=== PATIENT | female | born 1965 | race Caucasian/White ===

== ENCOUNTER 2018-01-02 16:43 | Observation (INO) ==
[2018-01-02] MEDS ORDERED: Gadolinium Contrast Agent (WT Based) IV PRN (18:02)
[2018-01-02] MEDS ORDERED: 0.9 % Sodium Chloride 1,000 ML IVC ONE (18:08)
[2018-01-02] MEDS ORDERED: Metoclopramide 10 MG/2 ML VIAL IVP STA (18:08)
--- NOTE | 2018-01-02 18:18 | Emergency Department Note ---
Disposition Clinical Impression: Acute ischemic stroke Disposition: Admitted As Inpatient Condition: Fair Forms: ED Satisfaction Letter Time of Disposition: 20:50 General Adult HPI - General Chief complaint: ED Neuro Symptoms/Deficit Stated complaint: left sided facial tingling Time Seen by Provider: 01/02/18 17:50 - History of Present Illness Pain Scale: 0 - Related Data Previous Rx's Medication Instructions Recorded Naproxen [Naprosyn] 500 mg PO BID PRN #20 tablet 04/25/17 Allergies Allergy/AdvReac Type Severity Reaction Status Date / Time Penicillins Allergy Unknown Rash Verified 04/24/17 21:35 Past Medical History - Past Medical History Medical history: Reports: arthritis - Social History Smoking Status: Never smoker Alcohol use: Reports: none Drug use: Reports: none Course Vital Signs Temperature 98.2 F 01/02/18 17:02 Pulse Rate 94 01/02/18 17:02 Respiratory Rate 18 01/02/18 17:02 Blood Pressure 122/69 01/02/18 17:02 O2 Sat by Pulse Oximetry 100 01/02/18 17:02 Temperature 98.2 F 01/02/18 18:05 Pulse Rate 73 01/02/18 19:51 Respiratory Rate 18 01/02/18 19:51 Blood Pressure 104/71 01/02/18 19:51 O2 Sat by Pulse Oximetry 100 01/02/18 19:51 Oxygen Delivery Oxygen Delivery Room Air Medical Decision Making - Lab Data Result diagrams: 01/02/18 18:07 01/02/18 18:07 Lab Results 01/02/18 01/02/18 Range/Units 18:07 18:07 WBC 5.7 (4.3-11.1) K/mcL RBC 4.89 (3.82-4.97) M/mcL Hgb 14.1 (11.5-15.4) g/dL Hct 42.3 (35.3-44.9) % MCV 86.5 (83.0-100.0) fL MCH 28.8 (28.0-33.3) pg MCHC 33.3 (31.6-35.5) g/dL RDW 13.2 (11.5-14.5) % Plt Count 270 (140-400) K/mcL MPV 11.2 (9.4-12.4) fL Sodium 135 L (136-145) mEq/L Potassium 4.1 (3.5-5.1) mEq/L Chloride 103 (98-107) mEq/L Carbon Dioxide 27 (23-29) mEq/L BUN 15 (6-20) mg/dL Creatinine 0.79 (0.60-1.20) mg/dL Est GFR ( Amer) > 60 (> 60) Est GFR (Non-Af Amer) > 60 (> 60) BUN/Creatinine Ratio 19 (6-26) Glucose 100 (70-105) mg/dL Calculated Osmolality 281 (280-300) Calcium 9.4 (8.6-10.3) mg/dL Attestation Statement - Attestation Attestation: I examined this patient and my medical decision-making was reviewed with the Resident Physician. I agree with the documented findings, disposition and treatment plan as described except to the extent set forth below. Patient presents to the ED with chief complaint of vision loss. Patient states today she had a change in the vision of her left eye. She states she feels like she is looking through a tunnel out of the left eye only. Was accompanied by tingling in her face. She was somewhat upset the other day that resolved spontaneously. She has appointments to get outpatient echo and carotid ultrasounds that was instructed to come to the ED when it happened again. On examination she is awake alert pleasant conversant sitting up in bed in no acute distress. Sensation intact. External ocular muscles intact. Pupils equally reactive. Visual field testing is unremarkable. Plan. MRI/MRA head neck. MR shows a small acute infarct in the corpus callosum. Patient admitted to medicine for stroke workup. Neck MRA 01/02/18 18:02 IMPRESSION: Small acute infarct in the leftward aspect of the splenium of the corpus callosum No focal significant arterial narrowing in the head No focal significant arterial narrowing in the neck D/ / Ishmael Horne / Ishmael Horne Interpreting Provider: Ishmael Horne Brain MRI 01/02/18 18:04 IMPRESSION: Small acute infarct in the leftward aspect of the splenium of the corpus callosum No focal significant arterial narrowing in the head No focal significant arterial narrowing in the neck D/ / Ishmael Horne / Ishmael Horne Interpreting Provider: Ishmael Horne Head MRA 01/02/18 18:04
[2018-01-02 18:45] LABS: Hematocrit 42.3 % (35.3-44.9); Hemoglobin 14.1 g/dL (11.5-15.4); Mean Corpuscular HGB Conc 33.3 g/dL (31.6-35.5); Mean Corpuscular Hemoglobin 28.8 pg (28.0-33.3); Mean Corpuscular Volume 86.5 fL (83.0-100.0); Mean Platelet Volume 11.2 fL (9.4-12.4); Platelet Count 270 K/mcL (140-400); Red Blood Count 4.89 M/mcL (3.82-4.97); Red Cell Distribution Width 13.2 % (11.5-14.5)
[2018-01-02 19:08] LABS: BUN/Creatinine Ratio 19 (6-26); Blood Urea Nitrogen 15 mg/dL (6-20); Calcium 9.4 mg/dL (8.6-10.3); Carbon Dioxide 27 mEq/L (23-29); Chloride 103 mEq/L (98-107); Glucose 100 mg/dL (70-105); Osmolality,Calculated 281 (280-300); Potassium 4.1 mEq/L (3.5-5.1); Sodium 135 mEq/L (136-145); eGFR For Non-African Americans > 60 (> 60)
[2018-01-02] MEDS ORDERED: Aspirin 325 MG TABLET PO ONE (20:48)
--- NOTE | 2018-01-02 20:49 | Emergency Department Note ---
Disposition Clinical Impression: Acute ischemic stroke, Stroke Disposition: Still a Patient Condition: Good Referrals: Estephania Wakefield MD [Primary Care Provider] - Forms: ED Satisfaction Letter Neuro HPI - General Chief Complaint: ED Neuro Symptoms/Deficit Stated Complaint: left sided facial tingling Time Seen by Provider: 01/02/18 17:50 Source: patient Limitations: no limitations - History of Present Illness HPI Narrative: 52 YO F presenting with left eye tunnel vision and face tingling. Symptom of left facial tingling started on fri. Today patient started having tunnel vision. This has never occurred before. Denies eye pain, floaters, vision changes similar to a "curtain falling". Denies weakness of extremities or face , difficulty balancing, tingling of extremities, decreased sensation. Patient does not have leg pain or swelling. No CP, SOB, pleuritic chest pain. Has history significant for benign liver tumor, unexplained fever for 1 year worked up at [facility], and erythema nodosum with decreased energy. These symptoms have never been explained. - Related Data Home Medications: Previous Rx's Medication Instructions Recorded Naproxen [Naprosyn] 500 mg PO BID PRN #20 tablet 04/25/17 Allergies/Adverse Reactions: Allergies Allergy/AdvReac Type Severity Reaction Status Date / Time Penicillins Allergy Unknown Rash Verified 04/24/17 21:35 All systems ED: reviewed and negative except as stated. Constitutional: Denies: fever, chills, weakness, night sweats Cardiovascular: Denies: chest pain, palpitations, dyspnea on exertion Respiratory: Denies: cough, dyspnea Gastrointestinal: Denies: abdominal pain, nausea Neurological: Denies: headache, weakness, numbness, paresthesias, confusion, abnormal gait, vertigo Past Medical History - Past Medical History Attestation: Yes The following information was validated with the patient. Source: patient Medical history: Reports: arthritis Psychiatric history: Reports: no psych history [employer] history: Reports: no [employer] history - Social History Smoking Status: Never smoker Smokeless Tobacco Status: No Alcohol use: Reports: none Drug use: Reports: none Physical Exam - General Limitations: no limitations General appearance: alert, in no apparent distress - Head Head exam: atraumatic, normocephalic - Eye Eye exam: Present: normal appearance, PERRL - Chest Chest inspection: Present: normal inspection, symmetric chest wall rise - Respiratory Respiratory exam: Present: normal lung sounds bilaterally, respiratory distress - Cardiovascular Cardiovascular exam: Present: regular rate, normal rhythm, normal heart sounds - Neurological Exam Neurological exam: Present: alert, oriented X3, CN II-XII intact - Psychiatric Psychiatric exam: Present: normal affect, normal mood Course Course Narrative: MRI of brain showed small infarct in corpus collosum. Spoke to hospitalists and patient. Patient will be admitted for stroke workup. Vital Signs Temperature 98.2 F 01/02/18 17:02 Pulse Rate 94 01/02/18 17:02 Respiratory Rate 18 01/02/18 17:02 Blood Pressure 122/69 01/02/18 17:02 O2 Sat by Pulse Oximetry 100 01/02/18 17:02 Temperature 98.2 F 01/02/18 18:05 Pulse Rate 73 01/02/18 19:51 Respiratory Rate 18 01/02/18 19:51 Blood Pressure 104/71 01/02/18 19:51 O2 Sat by Pulse Oximetry 100 01/02/18 19:51 Oxygen Delivery Oxygen Delivery Room Air Neuro Symptoms/Deficit - Lab Data Result diagrams: 01/02/18 18:07 01/02/18 18:07 Lab Results 01/02/18 01/02/18 Range/Units 18:07 18:07 WBC 5.7 (4.3-11.1) K/mcL RBC 4.89 (3.82-4.97) M/mcL Hgb 14.1 (11.5-15.4) g/dL Hct 42.3 (35.3-44.9) % MCV 86.5 (83.0-100.0) fL MCH 28.8 (28.0-33.3) pg MCHC 33.3 (31.6-35.5) g/dL RDW 13.2 (11.5-14.5) % Plt Count 270 (140-400) K/mcL MPV 11.2 (9.4-12.4) fL Sodium 135 L (136-145) mEq/L Potassium 4.1 (3.5-5.1) mEq/L Chloride 103 (98-107) mEq/L Carbon Dioxide 27 (23-29) mEq/L BUN 15 (6-20) mg/dL Creatinine 0.79 (0.60-1.20) mg/dL Est GFR ( Amer) > 60 (> 60) Est GFR (Non-Af Amer) > 60 (> 60) BUN/Creatinine Ratio 19 (6-26) Glucose 100 (70-105) mg/dL Calculated Osmolality 281 (280-300) Calcium 9.4 (8.6-10.3) mg/dL NIH Stroke Scale - Level of Consciousness LOC: Alert - LOC Questions LOC Questions: Answers both correctly - LOC Commands LOC Commands: Performs both correctly - Best Gaze Best Gaze: Normal - Visual Visual: Partial hemianopia - Facial Palsy Facial Palsy: Normal - Motor Arms Motor Arm-Left: No drift for 10 seconds Motor Arm-Right: No drift for 10 seconds - Motor Legs Motor Leg-Left: No drift for 5 seconds Motor Leg-Right: No drift for 5 seconds - Limb Ataxia Limb Ataxia: Normal, No Ataxia - Sensory Sensory: Normal - Best Language Best Language: No aphasia - Dysarthria Dysarthria: Normal - Extinction and Inattention Extinction and Inattention: Normal - NIHSS Total Score NIHSS Total Score: 1
[2018-01-02] MEDS ORDERED: Ringers Solution, Lactated 1,000 ML IVC SCH (21:45)
--- NOTE | 2018-01-02 23:13 | Internal Med History&Physical ---
Date of Encounter: 01/02/18 Time of Encounter: 21:00 Internal Medicine - H&P: HPI Chief complaint: Tunnel vision Admitted From: Home Plans for Post Hospital Care: Home History of present illness: Ms. Arriola is a 52 year old female who reports a history of a liver mass that required left hepatectomy reported nonmalignant however the etiology remains unclear, strong family history of CVA who presents with a complaint of left facial tingling that started on Friday and was self-limited and resolved and again earlier today recurred without accompanying speech slurring however was not associated with tunnel vision in her left eye. She had no headaches or loss of consciousness at the time. She was brought to the ER by her and comprehensive workup was done which included a brain MRI and showed a small acute infarct in the leftward aspect of the splenium of the corpus callosum. On my assessment she reports feeling well and has no complaints at this time. She denies headache, dizziness, chest pain, dyspnea, confusional state or ongoing facial paresthesias. She says her left eye vision is still somewhat blurry. She denies being on any prescribed medications at this time but confirms she takes OTC "Profema" for menopausal symptoms. Past Med Surg Social Fam HX - Past Medical History Medical history: arthritis Additional medical history: tumor on liver Psychiatric history: no psych history - Past Surgical History Additional surgical history: D&C. Tubal ligation. partial hepatectomy - Social History Smoking Status: Never smoker Smokeless Tobacco Status: No Alcohol use: none Drug use: none Internal Medicine - H&P: Meds Aspirin [Adult Aspirin] 81 mg PO DAILY 01/02/18 [History] Calcium Crb,Cit/D3/Min34/Ekaterina [Citracal + Bone Density Tablet] 1 each PO DAILY 01/02/18 [History] Cyanocobalamin (Vitamin B-12) [Vitamin B12] 1,000 mcg PO DAILY 01/02/18 [History ] DiphenhydraMINE [Benadryl] 50 mg PO HS 01/02/18 [History] Ibuprofen [Advil] 400 mg PO Q12H 01/02/18 [History] Loratadine [Claritin] 10 mg PO DAILY 01/02/18 [History] Magnesium Oxide [Magnesium] 400 mg PO DAILY 01/02/18 [History] Multivitamin [One Daily Essential] 1 each PO DAILY 01/02/18 [History] Potassium 99 mg PO DAILY 01/02/18 [History] Profema 1 tab PO DAILY 01/02/18 [History] Pseudoephedrine HCl [Sudafed] 30 mg PO DAILY 01/02/18 [History] 3 Allergy/AdvReac Type Severity Reaction Status Date / Time Penicillins Allergy Unknown Rash Verified 01/02/18 21:32 All Systems PM: A 10-system review of systems was performed and is negative for pertinent findings except as documented above in the HPI. - Constitutional Vitals: Temp Pulse Resp BP Pulse Ox 98.2 F 73 18 112/77 100 01/02/18 18:05 01/02/18 21:00 01/02/18 21:00 01/02/18 21:00 01/02/18 21:00 Exam: Vitals: Reviewed General: Well-developed, pleasant and in no acute distress Skin: Warm and supple. HEENT: Moist mucous membranes. No conjunctivae pallor. EOMI. PERRLA. Neck: No lymphadenopathy. No JVD. No carotid bruits. No palpable thyroid. Chest: Normal thoracic expansion. Normal breath sounds. Clear to auscultation. Heart: Normal S1 & S2; rhythmic. No rubs or murmurs. Abdomen: Non-distended, soft and non-tender to palpation. No peritoneal reaction. Liver is normal in size. Spleen is not palpable. Extremities: No clubbing, cyanosis or edema. No calf tenderness. Normal distal pulses. Neurological: Awake, alert and oriented to person, place and time. No focal deficits. Psych: Affect appropriate. Internal Med - H&P Results - Labs CBC & Chem 7: 01/02/18 18:07 01/02/18 18:07 Labs: Short CBC 01/02/18 Range/Units 18:07 WBC 5.7 (4.3-11.1) K/mcL Hgb 14.1 (11.5-15.4) g/dL Hct 42.3 (35.3-44.9) % Plt Count 270 (140-400) K/mcL [facility] 01/02/18 18:07 Sodium 135 L Potassium 4.1 Chloride 103 Carbon Dioxide 27 BUN 15 Creatinine 0.79 Glucose 100 Calcium 9.4 - Impressions ITS Impressions Neck MRA 01/02/18 18:02 IMPRESSION: Small acute infarct in the leftward aspect of the splenium of the corpus callosum No focal significant arterial narrowing in the head No focal significant arterial narrowing in the neck D/ / Ishmael Horne / Ishmael Horne Interpreting Provider: Ishmael Horne Brain MRI 01/02/18 18:04 IMPRESSION: Small acute infarct in the leftward aspect of the splenium of the corpus callosum No focal significant arterial narrowing in the head No focal significant arterial narrowing in the neck D/ / Ishmael Horne / Ishmael Horne Interpreting Provider: Ishmael Horne Head MRA 01/02/18 18:04 IMPRESSION: Small acute infarct in the leftward aspect of the splenium of the corpus callosum No focal significant arterial narrowing in the head No focal significant arterial narrowing in the neck D/ / Ishmael Honre / Ishmael Horne Interpreting Provider: Ishmael Horne - Assessment and plan (1) Acute ischemic stroke Current Visit: Yes Status: Acute Assessment and plan: Interesting location for a stroke. No known risk factors present as she denies peripheral vascular disease, diabetes, hypertension, smoking, illicit drug use. Could some of the components in her OTC medication mineral complex be a contributing factor? Unclear. Will send a comprehensive work up to ensure there is no hypercoagulable component. Loading dose ASA + high intensity statin to be given. The patient already takes ASA 81mg daily at home. Will check carotid duplex and EKG. Keep on telemetry. Neurology consultation. (2) Liver mass, left lobe Current Visit: Yes Status: Acute Assessment and plan: s/p resection. Etiology unclear. Follows at outside hospital. (3) DVT prophylaxis Current Visit: Yes Status: Acute Assessment and plan: SubQ heparin ordered. - Time Spent With Patient Total time spent is greater than 50% in coordination of care (as documented) at patient's floor/unit and/or counseling patient: Greater than 35 minutes - Stroke Is the patient on any antithrombotics?: No Are there any contradictions to antithrombotics?: No
[2018-01-03] MEDS: *HR* Heparin 5,000 UNIT/ML VIAL SQ SCH ×4 (01:33→21:41)
[2018-01-03 05:10] LABS: Basophils # 0.1 K/mcL (0.0-0.2); Basophils % 1.2 %; Eosinophils # 0.2 K/mcL (0.0-0.6); Lymphocytes # 1.9 K/mcL (0.6-4.6); Lymphocytes % 45.7 %; Mean Corpuscular HGB Conc 33.7 g/dL (31.6-35.5); Mean Corpuscular Hemoglobin 28.4 pg (28.0-33.3); Mean Corpuscular Volume 84.3 fL (83.0-100.0); Monocytes # 0.3 K/mcL (0.0-1.3); Monocytes % 7.7 %; Neutrophils # 1.7 K/mcL (1.6-8.9); Platelet Count 232 K/mcL (140-400); Red Blood Count 4.15 M/mcL (3.82-4.97); Red Cell Distribution Width 13.2 % (11.5-14.5); Segmented Neutrophils % 40.4 %
[2018-01-03 05:22] LABS: Hemoglobin 11.8 g/dL (11.5-15.4)
[2018-01-03 05:24] LABS: Prothrombin Time 11.1 Seconds (9.4-12.1)
[2018-01-03 05:26] LABS: Activated Partial Thrombo Time 31.5 Seconds (26.0-36.0)
[2018-01-03 05:31] LABS: BUN/Creatinine Ratio 19 (6-26); Blood Urea Nitrogen 11 mg/dL (6-20); Calcium 8.6 mg/dL (8.6-10.3); Carbon Dioxide 24 mEq/L (23-29); Chloride 106 mEq/L (98-107); Chol/HDL Ratio 2.4 (0-4.9); Cholesterol 182 mg/dL (< 200); Glucose 86 mg/dL (70-105); HDL Cholesterol 75 mg/dL (40-59); LDL Cholesterol,Calculated 97 mg/dL (0-99); Osmolality,Calculated 279 (280-300); Potassium 3.7 mEq/L (3.5-5.1); Sodium 135 mEq/L (136-145); Triglycerides 51 mg/dL (< 150); eGFR For Non-African Americans > 60 (> 60)
[2018-01-03 05:43] LABS: Thyroid Stimulating Hormone 4.943 mcIU/mL (0.340-5.600)
[2018-01-03 07:00] LABS: Estimated Average Glucose 105 mg/dl; Hemoglobin A1C 5.3 %
[2018-01-03] MEDS: Cyanocobalamin (B-12) 1,000 MCG TABLET PO SCH (08:11)
[2018-01-03] MEDS: Magnesium Oxide 400 MG TABLET PO SCH (08:11)
[2018-01-03] MEDS: Multivit/Ca/Min/Fe/FA 1 TAB TABLET PO SCH (08:11)
[2018-01-03] MEDS ORDERED: Aspirin 81 MG TAB.CHEW PO SCH (09:00)
[2018-01-03] MEDS ORDERED: Aspirin Enteric Coated 81 MG Tablet PO SCH (09:00)
--- NOTE | 2018-01-03 10:55 | Internal Med Progress Note ---
Hospitalist Progress Note - Encounter Date of Encounter: 01/03/18 Time of Encounter: 10:52 - Subjective Interval History: Ms. Arriola is a 52-year-old female with a past medical history of a liver mass that required left hepatectomy and fm of CVA who presented with left facial tingling, slurred speech who was found to have an acute ischemic stroke. Today patient is feeling *. - Exam Vitals: Temp Pulse Resp BP Pulse Ox 98.3 F 65 20 110/69 98 01/03/18 07:27 01/03/18 08:05 01/03/18 08:05 01/03/18 08:05 01/03/18 08:22 - Assessment and Plan (1) Acute ischemic stroke Current Visit: Yes Status: Acute Assessment and Plan: slurred speech and facial tingling. Brain MRI shows Small acute infarct in the leftward aspect of the splenium of the corpus callosum. Loading dose ASA + high intensity statin given. Head and neck MRI showed No focal significant arterial narrowing in the head or neck. Work-up pending for hypercoagulablity. Patient already taking ASA at home. Labs: Lipid panel: LDL = 97, HDL 75, total 182, TSH wnl Plan: - continue home ASA - continue Atorvastatin 20mg daily - carotid duplex - continue tele - echo pending - neurology consulted - pending labs: factor V, lupus anticoagulant panel, Vit B12, treponema pallidum ab, homocysteine - dispo: pending neurology recommendations (2) Liver mass, left lobe Current Visit: Yes Status: Acute - Time Spent with Patient Total time spent is greater than 50% in coordination of care (as documented) at patient's floor/unit and/or counseling patient: Internal Medicine: Result - Labs CBC & Chem 7: 01/03/18 04:52 01/03/18 04:52 Labs: Short CBC 01/03/18 Range/Units 04:52 WBC 4.2 L (4.3-11.1) K/mcL Hgb 11.8 D (11.5-15.4) g/dL Hct 35.0 L (35.3-44.9) % Plt Count 232 (140-400) K/mcL Neutrophils # 1.7 (1.6-8.9) K/mcL BMP 01/03/18 04:52 Sodium 135 L Potassium 3.7 Chloride 106 Carbon Dioxide 24 BUN 11 Creatinine 0.59 L Glucose 86 Calcium 8.6 - ABG Interpretation ABG results: PT/INR, D-dimer PT 11.1 Seconds (9.4-12.1) 01/03/18 04:52 Consult Discharge Plan - Plan Referrals: Estephania Wakefeild MD [Primary Care Provider] -
--- NOTE | 2018-01-03 13:30 | Neurology - Consult Note ---
Date of Encounter: 01/03/18 Time of Encounter: 13:26 Assessment and Plan (1) Abnormal finding on MRI of brain Current Visit: Yes Status: Acute At this juncture, I am not certain that the findings of the MRI scan of the brain has any bearing on the symptoms that ultimately led to her admission. The abnormality is identified in the splenium of the left side of the corpus callosum. Her symptoms of left facial paresthesias and visual abnormalities in the left eye would not localize to this lesion. I am also not completely certain that this abnormality is indeed an acute infarct. As mentioned in the body of the history of present illness of my report, there is no equivalent lesion on the ADC map to match with the abnormality on diffusion imaging and on the FLAIR imaging. There is no edema or mass effect identified around the lesion. Unfortunately the MRI scan of the brain was not done with contrast. However the MRA scans of the brain and of the neck were both normal. At this juncture I feel it is best to simply treat this abnormality as an acute infarct. I would recommend discontinuing the aspirin and switching her to Plavix in the meantime. I would also like to follow up with her my office in another month or so. At that time I would like to repeat an MRI scan of the brain with and without contrast as well as with diffusion images. If the lesion has resolved, then I would be convinced that it actually was not acute infarct. We can also help determine with contrast whether or not there are other entities to consider. I believe it is okay to discharge her home at your discretion as long as she agrees for follow-up as an outpatient for further characterization of this abnormality. Also it would be helpful to be able to compare the results of the brain MRI completed at the [facility] in July to the current study. History of Present Illness HPI: The chart was reviewed, the patient was seen and examined. Ms. Arriola is a 52 year old female who is seen for neurologic consultation at the request of the hospitalist due to left facial paresthesias and an abnormal MRI scan of the brain. Patient reports experiencing intermittent paresthesias of the left cheek region which began 4 days ago. Symptoms have waxed and waned over that time and then earlier on the day of admission which was yesterday she began to experience what seems to be tunnel vision involving the left eye. She states that this is still present. She denies any paresthesias of the left arm or left leg. She does not denies any difficulty with the speech or language comprehension. MRI scan of the brain without contrast was completed and revealed a small lesion in the splenium of the left side of the corpus callosum. This was called an acute infarct. However ADC map does not reveal a corresponding abnormality in the same region of the splenium of the corpus callosum where this abnormality is identified on diffusion imaging. However this abnormality is indeed present on the FLAIR images as well. There is no edema or mass effect associated with it. However the location of this lesion does not correlate with any of her symptoms. She has a lengthy past medical history. Apparently she was diagnosed with some type of hepatic tumor. The exact etiology or cell type of the tumor I am told was unknown but ultimately was benign. She apparently had an MRI scan of the brain completed at the [facility] in July of this year. I did not have the results of the study however she was not told of any abnormalities present. Past Med Surg Social Fam HX - Past Medical History Medical history: arthritis Additional medical history: tumor on liver with approx 30% liver removed @ [facility] july 2017 Psychiatric history: no psych history - Past Surgical History Surgical History: cholecystectomy, other Additional surgical history: D&C. Tubal ligation. partial hepatectomy - Social History Smoking Status: Never smoker Smokeless Tobacco Status: No Alcohol use: none Drug use: none - Family History Father Adopted: No Family Member Ethnicity: Non- Living Status: Age at : 80 Cause of : CVA Hx Family Endocrine Disorder: Yes (Diabetes) Hx Family Neurologic Disorders: Yes (TIA's, massive CVA) Hx Family Psychosocial Disorders: Yes Medications and Allergies Aspirin [Adult Aspirin] 81 mg PO DAILY 01/02/18 [History] Calcium Crb,Cit/D3/Min34/Ekaterina [Citracal + Bone Density Tablet] 1 each PO DAILY 01/02/18 [History] Cyanocobalamin (Vitamin B-12) [Vitamin B12] 1,000 mcg PO DAILY 01/02/18 [History ] DiphenhydraMINE [Benadryl] 50 mg PO HS 01/02/18 [History] Ibuprofen [Advil] 400 mg PO Q12H 01/02/18 [History] Loratadine [Claritin] 10 mg PO DAILY 01/02/18 [History] Magnesium Oxide [Magnesium] 400 mg PO DAILY 01/02/18 [History] Multivitamin [One Daily Essential] 1 each PO DAILY 01/02/18 [History] Potassium 99 mg PO DAILY 01/02/18 [History] Profema 1 tab PO DAILY 01/02/18 [History] Pseudoephedrine HCl [Sudafed] 30 mg PO DAILY 01/02/18 [History] 3 Allergy/AdvReac Type Severity Reaction Status Date / Time Penicillins Allergy Unknown Rash Verified 01/02/18 21:32 All Systems: The remainder of the systems were reviewed and are negative Review of Systems: The balance of the systems review is negative. Physical Examination - Vital Signs Vital Signs: Initial Vital Signs Temp Pulse Resp BP Pulse Ox 98.2 F 94 18 122/69 100 01/02/18 17:02 01/02/18 17:02 01/02/18 17:02 01/02/18 17:02 01/02/18 17:02 - Neurologic Detailed motor examination: full strength in all major muscle groups Motor examination - right side: 5/5: deltoids, biceps, triceps, wrist flexion, wrist extension, truck loader, hip flexors, tibialis Anterior, quadriceps, toe extension (EHL), plantarflexion Motor examination - left side: 5/5: deltoids, biceps, triceps, wrist flexion, wrist extension, hip flexors, truck loader, quadriceps, tibialis Anterior, toe extension (EHL), plantarflexion Reflex and gait examination: other (Deep tendon reflexes are 2+/4 of the upper and lower extremities throughout. However there is no clonus, no Babinski identified.) Mental Status Examination: awake, alert, oriented to person, oriented to place, oriented to time, follows commands appropriately, answers questions appropriately, no agnosia, no aphasia, no aproxia Cranial nerve examination: PERRL, EOMI, visual ricardo intact, corneal reflexes brisk symmetrically, sensory to face intact, mastication intact, no facial asymmetry is present, no dysarthria, hearing is intact symmetrically, soft palate elevates bilaterally upon phonation, gag reflex intact, flexes SCM and trapezius muscles symmetrically with full power, tongue protrudes midline, no atrophy or facial fasiculations present Cerebellar examination: no dysmetria, performs finger to nose and heel to valentine symmetrically without ataxia, no gait ataxia, no truncal ataxia, no difficulty with rapid alternating movements Results - Laboratory Findings CBC and BMP: 01/03/18 04:52 01/03/18 04:52 Abnormal lab findings: Abnormal lab results WBC 4.2 K/mcL (4.3-11.1) L 01/03/18 04:52 Hct 35.0 % (35.3-44.9) L 01/03/18 04:52 Sodium 135 mEq/L (136-145) L 01/03/18 04:52 Creatinine 0.59 mg/dL (0.60-1.20) L 01/03/18 04:52 Calculated Osmolality 279 (280-300) L 01/03/18 04:52 HDL Cholesterol 75 mg/dL (40-59) H 01/03/18 04:52 Consult Discharge Plan - Plan Referrals: Estephania Wakefield MD [Primary Care Provider] -
--- NOTE | 2018-01-03 14:30 | Discharge Summary ---
<Ly Wong - Last Filed: 01/03/18 18:03> - NOTES TO OUTPATIENT PROVIDER Notes to Outpatient Provider: Will need f/u with Neurology in 4 weeks. MRI head /brain with and without contrast in about 4 weeks prior to neurology appointment. Orders not resulted at time of discharge: Pending orders 01/03/18 04:52 MMA (VIT B12 STATUS) Routine Date of Encounter: 01/03/18 Time of Encounter: 11:30 - Discharge Diagnosis (1) Acute ischemic stroke Priority: Primary Status: Acute (2) Liver mass, left lobe Priority: Secondary Status: Acute Hospital course: H&P HPI: Ms. Arriola is a 52 year old female who reports a history of a liver mass that required left hepatectomy reported nonmalignant however the etiology remains unclear, strong family history of CVA who presents with a complaint of left facial tingling that started on Friday and was self-limited and resolved and again earlier today recurred without accompanying speech slurring however was not associated with tunnel vision in her left eye. She had no headaches or loss of consciousness at the time. She was brought to the ER by her and comprehensive workup was done which included a brain MRI without contrast and showed a small acute infarct in the leftward aspect of the splenium of the corpus callosum. HOSPITAL COURSE: Patient was admitted to the floor for observation for ischemic stroke. She was given loading dose ASA and started on Atorvastatin 20mg daily. Head and neck MRA were both normal. ECHO was completed which showed LVEF 65% normal wall segment motion. Patient's facial tingling resolved about 11 hrs after starting but she continued to have tunnel vision in her left eye. Neurology was consulted and recommended switching from ASA to Plavix as patient had already been on ASA daily and recommended repeat MRI with and without contrast with diffusion imaging in 1 month with a f/u appointment with Neurology at that time. Patient's vitals remained stable throughout the hospital course with no new symptoms. She was discharged home with Plavix and Atorvastatin and instructed to stop taking the ASA. She was instructed to f/u with her PCP in 2-5 days and f/u with Neurology in 4 weeks. She will need an MRI head/brain with and without contrast in about 4 weeks prior to neurology appointment. Discharge discussed with: patient - Time Spent with Patient Total time spent providing and/or coordinating discharge services: - Discharge Medications Prescriptions: Atorvastatin [Lipitor] 20 mg PO HS #30 tablet Clopidogrel [Plavix] 75 mg PO DAILY #30 tablet Home Medications: Calcium Crb,Cit/D3/Min34/Ekaterina [Citracal + Bone Density Tablet] 1 each PO DAILY 01/02/18 [History] Cyanocobalamin (Vitamin B-12) [Vitamin B12] 1,000 mcg PO DAILY 01/02/18 [History ] DiphenhydraMINE [Benadryl] 50 mg PO HS 01/02/18 [History] Ibuprofen [Advil] 400 mg PO Q12H 01/02/18 [History] Loratadine [Claritin] 10 mg PO DAILY 01/02/18 [History] Magnesium Oxide [Magnesium] 400 mg PO DAILY 01/02/18 [History] Multivitamin [One Daily Essential] 1 each PO DAILY 01/02/18 [History] Potassium 99 mg PO DAILY 01/02/18 [History] Profema 1 tab PO DAILY 01/02/18 [History] Pseudoephedrine HCl [Sudafed] 30 mg PO DAILY 01/02/18 [History] Atorvastatin [Lipitor] 20 mg PO HS #30 tablet 01/03/18 [Rx] Clopidogrel [Plavix] 75 mg PO DAILY #30 tablet 01/03/18 [Rx] Allergies/Adverse Reactions: 3 Allergy/AdvReac Type Severity Reaction Status Date / Time Penicillins Allergy Unknown Rash Verified 01/02/18 21:32 Date of admission: 01/03/18 00:11 Primary care physician: Estephania Wakefield Discharging clinician: Ronnie Martinez Anticipated date of discharge: 01/03/18 - Constitutional Vitals: Temp Pulse Resp BP Pulse Ox 98.2 F 63 16 104/66 100 01/03/18 11:30 01/03/18 11:30 01/03/18 11:30 01/03/18 11:30 01/03/18 11:30 Exam: Constitutional: Alert, in no acute distress, well nourished, well developed. HEENT: EOMI, peripheral vision field testing normal, PERRL, Normocephalic, atraumatic, normal contour and symmetric, no masses, lesions or scars Heart: Normal, regular rate and rhythm, no murmurs Lungs: Clear to auscultation, no wheezes, rales, or rhonchi Abdomen: Soft, nondistended, nontender, and no masses palpable, bowel sounds present and normal, no guarding or rigidity. Extremities: No clubbing, cyanosis, or edema, radial pulse +2/4, capillary refill <2sec. Skin: Skin warm and dry, no lesions, no rashes, no jaundice Neurologic: no facial asymmetry, Cranial nerves II through XII intact, Romberg sign negative, Achilles reflexes +2/4, no focal deficits, strength within normal limits in all extremities, Psych: Cooperative with exam, good eye contact, cognitive function intact, judgment good insight good, speech clear, thought process logical, and goal directed - Patient Status Disposition: Home, Self-Care Condition: Good Overall status at discharge: patient is progressing back to baseline - Discharge Instructions Instructions: Atorvastatin (By mouth), Clopidogrel (By mouth), Heart Healthy Diet (DC), Cholesterol and Your Health (GEN), Ischemic Stroke (DC), Ischemic Stroke (GEN), Hemorrhagic Stroke (DC), Hemorrhagic Stroke (GEN), Right Hemispheric Stroke (DC), Right Hemispheric Stroke (GEN), Left Hemispheric Stroke (DC), Left Hemispheric Stroke (GEN), Self Care Measures After a Stroke ( DC), Self Care Measures After a Stroke (GEN), Dizziness (GEN), Right Hemispheric Stroke, Planning Manager (GEN), Hemorrhagic Stroke, Planning Manager ( GEN), Dizziness, Planning Manager (GEN), Ischemic Stroke, Planning Manager (GEN), Left Hemispheric Stroke, Planning Manager (GEN) Follow Up With: Ophthalmology [Provider Group] Estephania Wakefield MD [Primary Care Provider] - Joshua Niño DO [Partnered Physician] - Additional Instructions: Please stop taking Aspirin and begin taking Plavix. Prescriptions sent to pharmacy for Plavix and Atorvstatin. Please follow-up with your primary car physician in 2-5 days. Please follow-up with Neurology in 4 weeks and obtain repeat MRI before appointment. - Diet and Activity Activity: increase activity as tolerated Diet: regular diet - Stroke Is the patient on any antithrombotics?: No Are there any contradictions to antithrombotics?: No Contraindication Not Initiating IV-Tpa: Not Indicated - Symptoms Rapidly Improving Onset of Symptoms Date: 01/02/18 Onset of Symptoms Time: 12:00 Symptom Onset Unknown: No Has Patient Been Evaluated by Rehab for Stroke: No Contraindication Rehab Services Not Assessed: Returned to Prior Level of Function <Ronnie Martinez - Last Filed: 01/04/18 13:49> Orders not resulted at time of discharge: Pending orders 01/03/18 04:52 MMA (VIT B12 STATUS) Routine Date of Encounter: 01/04/18 - Discharge Diagnosis (1) Acute ischemic stroke Status: Acute (2) Liver mass, left lobe Status: Acute (3) Changes in vision Status: Acute Hospital course: Ms. Arriola is a 52 year old female - Time Spent with Patient Total time spent providing and/or coordinating discharge services: Date of admission: 01/03/18 00:11 Primary care physician: Estephania Wakefield - Constitutional Vitals: Temp Pulse Resp BP Pulse Ox 97.9 F 85 14 112/78 99 01/04/18 11:16 01/04/18 11:16 01/04/18 11:16 01/04/18 11:16 01/04/18 11:16 - Attending Attestation I examined this patient and my medical decision-making was reviewed with the Resident Physician. I agree with the documented findings, disposition and treatment plan as described except to the extent set forth below.
[2018-01-04] MEDS: *HR* Heparin 5,000 UNIT/ML VIAL SQ SCH (06:08)
[2018-01-04] MEDS: Magnesium Oxide 400 MG TABLET PO SCH (10:26)
[2018-01-04] MEDS: Cyanocobalamin (B-12) 1,000 MCG TABLET PO SCH (10:26)
[2018-01-04] MEDS: Multivit/Ca/Min/Fe/FA 1 TAB TABLET PO SCH (10:26)
--- NOTE | 2018-01-04 10:56 | Internal Med Progress Note ---
<Ly Wong - Last Filed: 01/04/18 10:52> Hospitalist Progress Note - Encounter Date of Encounter: 01/04/18 Time of Encounter: 11:00 - Subjective Interval History: Today patient states that she is doing well and has no numbness of her face. She says the peripheral vision of her left eye is still fussy. - Exam Vitals: Temp Pulse Resp BP Pulse Ox 98.3 F 80 16 108/65 98 01/04/18 07:04 01/04/18 07:04 01/04/18 07:04 01/04/18 07:04 01/04/18 07:04 Exam: Constitutional: Alert, in no acute distress Head: Normocephalic, atraumatic Heart: Normal, regular rate and rhythm, no murmurs Lungs: Clear to auscultation, no wheezes, rales, or rhonchi Abdomen: Soft, nondistended, nontender, bowel sounds present and normal, no guarding or rigidity. Extremities: No edema, No clubbing, radial pulse +2/4, capillary refill <2sec. Skin: Skin warm and dry, no lesions, no rashes, no jaundice Neurologic: Cranial nerves II through XII grossly intact, strength 5/5 in all extremities Psych: Cooperative with exam, good eye contact, cognitive function intact, speech clear, thought process logical, and goal directed - Assessment and Plan (1) Acute ischemic stroke Status: Acute Assessment and Plan: CT scan showed Small acute infarct in the leftward aspect of the splenium of the corpus callosum. MRA of neck and head wnl. Patients numbness and tingling resolved but visual changes still present. Hypercoagulability work up pending, will need results reported to PCP. Echo results normal. plan: discharge today on Atorvastatin and Plavix, f/u appt with Dr. Niño in 4- 6 weeks after MRI brain with and without contrast. Recommend f/u with ophthalmology for visual changes. (2) Liver mass, left lobe Status: Acute Assessment and Plan: s/p resection. Etiology unclear. Follows at outside hospital. (3) Changes in vision Status: Acute Assessment and Plan: Tunnel vision but peripheral visual ricardo still intact. Instructed patient to f /u with ophthalmology outpatient. DVT Prophylaxis: Heparin SQ - Time Spent with Patient Total time spent is greater than 50% in coordination of care (as documented) at patient's floor/unit and/or counseling patient: Plan of Care Discussed with: patient Internal Medicine: Result - Labs CBC & Chem 7: 01/03/18 04:52 01/03/18 04:52 - ABG Interpretation ABG results: PT/INR, D-dimer PT 11.1 Seconds (9.4-12.1) 01/03/18 04:52 - Stroke Is the patient on any antithrombotics?: No Are there any contradictions to antithrombotics?: No Contraindication Not Initiating IV-Tpa: Not Indicated - Symptoms Rapidly Improving Contraindication Rehab Services Not Assessed: Returned to Prior Level of Function Consult Discharge Plan - Plan Instructions: Atorvastatin (By mouth), Clopidogrel (By mouth), Heart Healthy Diet (DC), Cholesterol and Your Health (GEN), Ischemic Stroke (DC), Ischemic Stroke (GEN), Hemorrhagic Stroke (DC), Hemorrhagic Stroke (GEN), Right Hemispheric Stroke (DC), Right Hemispheric Stroke (GEN), Left Hemispheric Stroke (DC), Left Hemispheric Stroke (GEN), Self Care Measures After a Stroke ( DC), Self Care Measures After a Stroke (GEN), Dizziness (GEN), Right Hemispheric Stroke, Engineer Systems (GEN), Hemorrhagic Stroke, Engineer Systems ( GEN), Dizziness, Engineer Systems (GEN), Ischemic Stroke, Engineer Systems (GEN), Left Hemispheric Stroke, Engineer Systems (GEN) Additional Instructions: Please stop taking Aspirin and begin taking Plavix. Prescriptions sent to pharmacy for Plavix and Atorvstatin. Please follow-up with your primary car physician in 2-5 days. Please follow-up with Neurology in 4 weeks and obtain repeat MRI before appointment. Referrals: Ophthalmology [Provider Group] Estephania Wakefield MD [Primary Care Provider] - Joshua Niño DO [Partnered Physician] - Prescriptions: Atorvastatin [Lipitor] 20 mg PO HS #30 tablet Clopidogrel [Plavix] 75 mg PO DAILY #30 tablet <Ronnie Martinez - Last Filed: 01/04/18 13:49> Hospitalist Progress Note - Encounter Date of Encounter: 01/04/18 - Exam Vitals: Temp Pulse Resp BP Pulse Ox 97.9 F 85 14 112/78 99 01/04/18 11:16 01/04/18 11:16 01/04/18 11:16 01/04/18 11:16 01/04/18 11:16 - Assessment and Plan (1) Acute ischemic stroke Status: Acute (2) Liver mass, left lobe Status: Acute (3) Changes in vision Status: Acute - Time Spent with Patient Total time spent is greater than 50% in coordination of care (as documented) at patient's floor/unit and/or counseling patient: Internal Medicine: Result - Labs CBC & Chem 7: 01/03/18 04:52 01/03/18 04:52 - ABG Interpretation ABG results: PT/INR, D-dimer PT 11.1 Seconds (9.4-12.1) 01/03/18 04:52 - Attending Attestation I examined this patient and my medical decision-making was reviewed with the Resident Physician. I agree with the documented findings, disposition and treatment plan as described except to the extent set forth below.
[2018-01-04 11:21] VITALS: BP 112/78
--- NOTE | 2018-01-05 22:31 | Electrocardiograph Report ---
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
[2018-01-06 02:21] LABS: APTT (LE Anticoag) 40 sec (32-48); Diluted Russell Viper Venom 28 sec (33-44); PT (LE-Anticoag) 13.7 sec (12.0-15.5)
[2018-01-07 16:52] LABS: Prothrombin G20210A Specimen WHOLE BLOOD
[2018-01-07 17:06] LABS: FACV Specimen WHOLE BLOOD
[2018-01-08 09:22] LABS: Fac V Leiden R506Q Mut Result NEGATIVE; Prothrombin G20210A Mut Result NEGATIVE
== END 2018-01-04 12:59 | disposition home or self-care (01) ==
LOC: 2NENU 16:43 → EMEROOARM 16:43 → 2NENU 01-03 00:21
PROVIDERS: ADMIT Internal Medicine; ATTEND Internal Medicine